=== PATIENT | female | born 1955 | race Caucasian/White ===

== ENCOUNTER 2019-02-27 12:54 | Inpatient (IN) ==
[2019-02-27] MEDS ORDERED: Sennosides/Docusate Sodium TABLET PO PRN (18:45)
[2019-02-27] MEDS ORDERED: Ondansetron 4 MG/2 ML VIAL IVP PRN (18:45)
[2019-02-27] MEDS ORDERED: ALPRAZolam 0.25 MG TABLET GTUBE PRN (18:45)
[2019-02-27] MEDS ORDERED: NON-FORMULARY MEDICATION 1 EACH EACH (Piperacillin-Tazo-Dextrose,Iso [Zosyn 3.375 Gm/50 Ml IV SCH (18:45)
[2019-02-27] MEDS: Docusate Oral Soln 100 MG/10 ML UDC GTUBE SCH (20:38)
[2019-02-27] MEDS: *HR* OxyCODONE Oral Soln 5 MG/5 ML UD.LIQ GTUBE PRN (20:38)
[2019-02-28] MEDS: Piperacillin/Tazobactam 3.375 GM in 0.9 % Sodium Chloride Mini Bag 100 ML IVPB SCH ×3 (00:46→20:38)
[2019-02-28] MEDS: Melatonin 3 MG TABLET PO PRN (01:39)
[2019-02-28] MEDS: Ondansetron 4 MG/2 ML VIAL IVP PRN ×4 (01:39→23:45)
[2019-02-28] MEDS: *HR* Promethazine 25 MG/ML VIAL IVP PRN ×2 (03:45→07:59)
[2019-02-28] MEDS: *HR* OxyCODONE Oral Soln 5 MG/5 ML UD.LIQ GTUBE PRN ×3 (05:38→18:55)
[2019-02-28 07:11] LABS: Basophils % 0.5 %; Eosinophils # 0.1 K/mcL (0.0-0.6); Eosinophils % 1.4 %; Hematocrit 27.8 % (35.3-44.9); Immature Granulocytes % 1.4 % (0-4); Lymphocytes # 0.8 K/mcL (0.6-4.6); Lymphocytes % 11.5 %; Mean Corpuscular HGB Conc 32.4 g/dL (31.6-35.5); Mean Corpuscular Hemoglobin 29.2 pg (28.0-33.3); Mean Corpuscular Volume 90.3 fL (83.0-100.0); Mean Platelet Volume 10.7 fL (9.4-12.4); Monocytes # 0.8 K/mcL (0.0-1.3); Monocytes % 10.4 %; Neutrophils # 5.5 K/mcL (1.6-8.9); Platelet Count 248 K/mcL (140-400); Red Blood Count 3.08 M/mcL (3.82-4.97); Red Cell Distribution Width 20.5 % (11.5-14.5); Segmented Neutrophils % 74.8 %; White Blood Count 7.3 K/mcL (4.3-11.1)
[2019-02-28 07:43] LABS: BUN/Creatinine Ratio 27 (6-26); Blood Urea Nitrogen 25 mg/dL (8-23); Calcium 8.6 mg/dL (8.6-10.3); Carbon Dioxide 23 mEq/L (23-29); Chloride 104 mEq/L (98-107); Glucose 86 mg/dL (70-105); Osmolality,Calculated 290 (280-300); Potassium 3.9 mEq/L (3.5-5.1); Sodium 138 mEq/L (136-145); eGFR For African Americans > 60 (> 60); eGFR For Non-African Americans 60 (> 60)
[2019-02-28] MEDS ORDERED: NON-FORMULARY MEDICATION 1 EACH EACH (Levofloxacin 750 Mg/150 Ml 750 MG) IVPB SCH (09:00)
[2019-02-28] MEDS ORDERED: FLUCONAZOLE IVPB SCH (09:00)
[2019-02-28] MEDS: Docusate Oral Soln 100 MG/10 ML UDC GTUBE SCH ×2 (10:18→20:37)
[2019-02-28] MEDS: levoFLOXacin 750 MG/150 ML 750 MG/150 ML BAG IVPB SCH (10:19)
[2019-02-28] MEDS ORDERED: Fluconazole 400 MG/200 ML 400 MG/200 ML BAG IVPB SCH (15:00)
[2019-02-28] MEDS ORDERED: Fluconazole 200 MG/100 ML 200 MG/100 ML BAG IVPB SCH (15:30)
[2019-02-28] MEDS: Fluconazole 200 MG/100 ML 200 MG/100 ML BAG IVPB SCH (15:35)
[2019-03-01] MEDS: *HR* LORazepam Oral Conc 2 MG/ML SL PRN (01:03)
[2019-03-01] MEDS: Melatonin 3 MG TABLET PO PRN (02:10)
[2019-03-01] MEDS: Ondansetron 4 MG/2 ML VIAL IVP PRN ×2 (04:22→11:55)
[2019-03-01] MEDS: Piperacillin/Tazobactam 3.375 GM in 0.9 % Sodium Chloride Mini Bag 100 ML IVPB SCH ×3 (04:23→21:01)
[2019-03-01] MEDS: levoFLOXacin 750 MG/150 ML 750 MG/150 ML BAG IVPB SCH (08:54)
[2019-03-01] MEDS: Docusate Oral Soln 100 MG/10 ML UDC GTUBE SCH ×2 (08:54→21:05)
[2019-03-01] MEDS ORDERED: 0.9 % Sodium Chloride 250 ML IVC ONE (11:41)
[2019-03-01] MEDS: OLANZapine 5 MG TAB.RAPDIS PO SCH ×2 (11:55→21:05)
[2019-03-01] MEDS: 0.9 % Sodium Chloride 250 ML IVC PRN (16:24)
[2019-03-01] MEDS: Fluconazole 200 MG/100 ML 200 MG/100 ML BAG IVPB SCH (16:49)
[2019-03-01 18:36] LABS: Bilirubin,Urine Negative (Negative); Blood,Urine Small (Negative); Clarity,Urine Clear (Clear); Glucose,Urine (UA) Normal (Normal); Ketones,Urine Negative (Negative); Leukocyte Esterase,Urine Negative (Negative); Nitrite,Urine Negative (Negative); PH,Urine 6.5 pH Units (5.0-8.0); Protein,Urine Negative (Neg-Trace); Urobilinogen,Urine Normal (Normal)
[2019-03-01 18:39] LABS: Color,Urine Light Yellow (Yellow)
[2019-03-01 18:44] LABS: Squamous Epithelial Cell,Urine Few per lpf (None-Few); WBC,Urine 0-3 per hpf (0-3)
[2019-03-01] MEDS: Saline Nasal Spray 44 ML BOTTLE NS SCH (21:11)
[2019-03-02] MEDS: *HR* LORazepam Oral Conc 2 MG/ML SL PRN (01:18)
[2019-03-02] MEDS: *HR* OxyCODONE Oral Soln 5 MG/5 ML UD.LIQ GTUBE PRN (02:39)
[2019-03-02] MEDS: Piperacillin/Tazobactam 3.375 GM in 0.9 % Sodium Chloride Mini Bag 100 ML IVPB SCH ×3 (04:09→21:09)
[2019-03-02] MEDS: Saline Nasal Spray 44 ML BOTTLE NS SCH ×2 (10:50→21:16)
[2019-03-02] MEDS: Docusate Oral Soln 100 MG/10 ML UDC GTUBE SCH ×2 (10:50→21:16)
[2019-03-02] MEDS: diazePAM 5 MG TABLET PO PRN ×2 (10:51→22:15)
[2019-03-02] MEDS: OLANZapine 5 MG TAB.RAPDIS PO SCH ×2 (10:51→21:16)
[2019-03-02] MEDS: levoFLOXacin 750 MG/150 ML 750 MG/150 ML BAG IVPB SCH (10:51)
[2019-03-02] MEDS: Fluconazole 200 MG/100 ML 200 MG/100 ML BAG IVPB SCH (16:59)
[2019-03-02] MEDS: 0.9 % Sodium Chloride 250 ML IVC PRN (21:21)
[2019-03-03] MEDS: diazePAM 5 MG TABLET PO PRN ×2 (04:17→09:39)
[2019-03-03] MEDS: Piperacillin/Tazobactam 3.375 GM in 0.9 % Sodium Chloride Mini Bag 100 ML IVPB SCH ×3 (04:18→20:18)
[2019-03-03 05:31] LABS: Basophils % 0.5 %; Eosinophils # 0.1 K/mcL (0.0-0.6); Eosinophils % 1.8 %; Hematocrit 29.6 % (35.3-44.9); Hemoglobin 9.2 g/dL (11.5-15.4); Immature Granulocytes % 0.6 % (0-4); Lymphocytes # 0.9 K/mcL (0.6-4.6); Lymphocytes % 13.8 %; Mean Corpuscular HGB Conc 31.1 g/dL (31.6-35.5); Mean Corpuscular Hemoglobin 28.9 pg (28.0-33.3); Mean Corpuscular Volume 93.1 fL (83.0-100.0); Mean Platelet Volume 10.5 fL (9.4-12.4); Monocytes # 0.6 K/mcL (0.0-1.3); Monocytes % 9.4 %; Neutrophils # 4.8 K/mcL (1.6-8.9); Platelet Count 230 K/mcL (140-400); Red Blood Count 3.18 M/mcL (3.82-4.97); Red Cell Distribution Width 20.8 % (11.5-14.5); Segmented Neutrophils % 73.9 %; White Blood Count 6.5 K/mcL (4.3-11.1)
[2019-03-03 05:54] LABS: Alanine Aminotransferase 35 Units/L (7-52); Albumin 2.9 g/dL (3.5-5.7); Alkaline Phosphatase 163 Units/L (34-104); Aspartate Amino Transferase 26 Units/L (13-39); BUN/Creatinine Ratio 24 (6-26); Bilirubin,Total 0.4 mg/dL (0.3-1.0); Blood Urea Nitrogen 22 mg/dL (8-23); Calcium 8.4 mg/dL (8.6-10.3); Carbon Dioxide 23 mEq/L (23-29); Chloride 108 mEq/L (98-107); Globulin 2.9 g/dL (2.4-3.5); Glucose 148 mg/dL (70-105); Osmolality,Calculated 296 (280-300); Potassium 3.7 mEq/L (3.5-5.1); Sodium 140 mEq/L (136-145); Total Protein 5.8 g/dL (6.4-8.9); eGFR For African Americans > 60 (> 60); eGFR For Non-African Americans > 60 (> 60)
[2019-03-03] MEDS: *HR* OxyCODONE Oral Soln 5 MG/5 ML UD.LIQ GTUBE PRN (09:39)
[2019-03-03] MEDS: OLANZapine 5 MG TAB.RAPDIS PO SCH ×2 (09:39→20:21)
[2019-03-03] MEDS: Docusate Oral Soln 100 MG/10 ML UDC GTUBE SCH ×2 (09:42→19:42)
[2019-03-03] MEDS: Saline Nasal Spray 44 ML BOTTLE NS SCH ×2 (09:43→20:21)
[2019-03-03 10:50] LABS: Vitamin B12 306 pg/mL (250-1100)
[2019-03-03 10:58] LABS: Folate > 22.3 ng/mL (3.0-16.0)
[2019-03-03] MEDS: Cholecalciferol (D-3) 1,000 UNIT (25MCG) TABLET PO SCH (12:41)
[2019-03-03] MEDS: Fluconazole 200 MG/100 ML 200 MG/100 ML BAG IVPB SCH (17:42)
[2019-03-03] MEDS ORDERED: Lidocaine 4% CREAM (LMX) 5 GM TP PRN (19:37)
[2019-03-04] MEDS: Ondansetron 4 MG/2 ML VIAL IVP PRN (01:00)
[2019-03-04] MEDS: Piperacillin/Tazobactam 3.375 GM in 0.9 % Sodium Chloride Mini Bag 100 ML IVPB SCH ×3 (04:25→21:56)
[2019-03-04] MEDS: Cholecalciferol (D-3) 1,000 UNIT (25MCG) TABLET PO SCH (08:19)
[2019-03-04] MEDS: OLANZapine 5 MG TAB.RAPDIS PO SCH ×2 (08:19→21:57)
[2019-03-04] MEDS: Docusate Oral Soln 100 MG/10 ML UDC GTUBE SCH ×2 (08:20→21:55)
[2019-03-04] MEDS: levoFLOXacin 750 MG/150 ML 750 MG/150 ML BAG IVPB SCH (08:20)
[2019-03-04 09:13] LABS: Basophils % 0.3 %; Eosinophils # 0.1 K/mcL (0.0-0.6); Eosinophils % 1.5 %; Hemoglobin 9.2 g/dL (11.5-15.4); Immature Granulocytes % 0.6 % (0-4); Lymphocytes # 0.9 K/mcL (0.6-4.6); Lymphocytes % 13.7 %; Mean Corpuscular HGB Conc 31.7 g/dL (31.6-35.5); Mean Corpuscular Hemoglobin 29.4 pg (28.0-33.3); Mean Corpuscular Volume 92.7 fL (83.0-100.0); Mean Platelet Volume 10.7 fL (9.4-12.4); Monocytes # 0.7 K/mcL (0.0-1.3); Monocytes % 10.1 %; Neutrophils # 4.9 K/mcL (1.6-8.9); Platelet Count 207 K/mcL (140-400); Red Blood Count 3.13 M/mcL (3.82-4.97); Red Cell Distribution Width 20.7 % (11.5-14.5); Segmented Neutrophils % 73.8 %; White Blood Count 6.6 K/mcL (4.3-11.1)
[2019-03-04 09:33] LABS: BUN/Creatinine Ratio 27 (6-26); Blood Urea Nitrogen 22 mg/dL (8-23); Calcium 8.3 mg/dL (8.6-10.3); Carbon Dioxide 22 mEq/L (23-29); Chloride 109 mEq/L (98-107); Glucose 128 mg/dL (70-105); Magnesium 1.9 mg/dL (1.6-2.6); Osmolality,Calculated 295 (280-300); Potassium 3.8 mEq/L (3.5-5.1); Sodium 140 mEq/L (136-145); eGFR For African Americans > 60 (> 60); eGFR For Non-African Americans > 60 (> 60)
[2019-03-04] MEDS ORDERED: Saline Nasal Spray 44 ML BOTTLE NS PRN (11:21)
[2019-03-04] MEDS: Fluconazole 200 MG/100 ML 200 MG/100 ML BAG IVPB SCH (16:24)
[2019-03-04] MEDS: Melatonin 3 MG TABLET PO PRN (21:56)
[2019-03-05] MEDS: diazePAM 5 MG TABLET PO PRN (03:07)
[2019-03-05] MEDS: Piperacillin/Tazobactam 3.375 GM in 0.9 % Sodium Chloride Mini Bag 100 ML IVPB SCH ×3 (05:10→21:10)
[2019-03-05] MEDS: Ondansetron 4 MG/2 ML VIAL IVP PRN (07:42)
[2019-03-05] MEDS: Docusate Oral Soln 100 MG/10 ML UDC GTUBE SCH ×2 (09:05→21:28)
[2019-03-05] MEDS: OLANZapine 5 MG TAB.RAPDIS PO SCH ×2 (09:21→21:13)
[2019-03-05] MEDS: Cholecalciferol (D-3) 1,000 UNIT (25MCG) TABLET PO SCH (09:21)
[2019-03-05] MEDS: Scopolamine Patch 1.5 MG PATCH.TD72 TD PRN (11:54)
[2019-03-05] MEDS: Fluconazole 200 MG/100 ML 200 MG/100 ML BAG IVPB SCH (16:34)
[2019-03-05] MEDS ORDERED: Isovue-370 500 ML BOTTLE IVP ONE (19:04)
[2019-03-06] MEDS: Piperacillin/Tazobactam 3.375 GM in 0.9 % Sodium Chloride Mini Bag 100 ML IVPB SCH ×3 (04:35→21:25)
[2019-03-06] MEDS: Docusate Oral Soln 100 MG/10 ML UDC GTUBE SCH ×2 (09:16→20:40)
[2019-03-06] MEDS: Cholecalciferol (D-3) 1,000 UNIT (25MCG) TABLET PO SCH (09:19)
[2019-03-06] MEDS: OLANZapine 5 MG TAB.RAPDIS PO SCH ×2 (09:19→21:26)
[2019-03-06] MEDS: levoFLOXacin 750 MG/150 ML 750 MG/150 ML BAG IVPB SCH (09:19)
[2019-03-06] MEDS ORDERED: Metoclopramide 10 MG/2 ML VIAL IVP PRN (12:09)
[2019-03-06] MEDS: Fluconazole 200 MG/100 ML 200 MG/100 ML BAG IVPB SCH (16:19)
[2019-03-06] MEDS ORDERED: Metoclopramide 10 MG/2 ML VIAL IVP SCH (18:00)
[2019-03-06] MEDS ORDERED: SODIUM CHLORIDE IV ONE (19:36)
[2019-03-06] MEDS ORDERED: 0.9 % Sodium Chloride 500 ML IV ONE (19:41)
[2019-03-06] MEDS ORDERED: 0.9 % Sodium Chloride 500 ML IVC SCH (19:45)
[2019-03-06] MEDS ORDERED: 0.9 % Sodium Chloride 1,000 ML ONE (19:48)
[2019-03-07] MEDS: Piperacillin/Tazobactam 3.375 GM in 0.9 % Sodium Chloride Mini Bag 100 ML IVPB SCH ×3 (03:40→20:24)
[2019-03-07] MEDS: Ondansetron 4 MG/2 ML VIAL IVP PRN ×4 (03:42→17:05)
[2019-03-07 07:04] LABS: Alanine Aminotransferase 26 Units/L (7-52); Albumin 2.8 g/dL (3.5-5.7); Albumin/Globulin Ratio 0.9 (1.1-2.2); Alkaline Phosphatase 184 Units/L (34-104); Aspartate Amino Transferase 22 Units/L (13-39); BUN/Creatinine Ratio 25 (6-26); Bilirubin,Total 0.4 mg/dL (0.3-1.0); Blood Urea Nitrogen 22 mg/dL (8-23); Calcium 8.7 mg/dL (8.6-10.3); Carbon Dioxide 20 mEq/L (23-29); Chloride 107 mEq/L (98-107); Globulin 3.1 g/dL (2.4-3.5); Glucose 81 mg/dL (70-105); Osmolality,Calculated 288 (280-300); Potassium 3.8 mEq/L (3.5-5.1); Sodium 138 mEq/L (136-145); Total Protein 5.9 g/dL (6.4-8.9); eGFR For African Americans > 60 (> 60); eGFR For Non-African Americans > 60 (> 60)
[2019-03-07 07:44] LABS: Basophils % 0.8 %; Eosinophils # 0.2 K/mcL (0.0-0.6); Eosinophils % 4.1 %; Hematocrit 30.4 % (35.3-44.9); Hemoglobin 9.5 g/dL (11.5-15.4); Immature Granulocytes % 0.6 % (0-4); Lymphocytes # 0.9 K/mcL (0.6-4.6); Lymphocytes % 17.6 %; Mean Corpuscular HGB Conc 31.3 g/dL (31.6-35.5); Mean Corpuscular Hemoglobin 28.8 pg (28.0-33.3); Mean Corpuscular Volume 92.1 fL (83.0-100.0); Mean Platelet Volume 10.3 fL (9.4-12.4); Monocytes # 0.5 K/mcL (0.0-1.3); Monocytes % 9.7 %; Neutrophils # 3.5 K/mcL (1.6-8.9); Platelet Count 201 K/mcL (140-400); Segmented Neutrophils % 67.2 %; White Blood Count 5.2 K/mcL (4.3-11.1)
[2019-03-07] MEDS: Cholecalciferol (D-3) 1,000 UNIT (25MCG) TABLET PO SCH (08:48)
[2019-03-07] MEDS: Docusate Oral Soln 100 MG/10 ML UDC GTUBE SCH ×2 (08:49→20:22)
[2019-03-07] MEDS: Fluconazole 200 MG/100 ML 200 MG/100 ML BAG IVPB SCH (16:54)
[2019-03-07] MEDS: Famotidine 20 MG/2 ML VIAL IVP SCH (18:18)
[2019-03-07] MEDS: OLANZapine 5 MG TAB.RAPDIS PO SCH (20:26)
[2019-03-07] MEDS: Melatonin 3 MG TABLET PO PRN (20:27)
[2019-03-08] MEDS: Ondansetron 4 MG/2 ML VIAL IVP PRN ×2 (00:45→11:45)
[2019-03-08] MEDS: Famotidine 20 MG/2 ML VIAL IVP SCH ×2 (04:29→17:27)
[2019-03-08] MEDS: Piperacillin/Tazobactam 3.375 GM in 0.9 % Sodium Chloride Mini Bag 100 ML IVPB SCH ×3 (04:39→21:03)
[2019-03-08] MEDS: Docusate Oral Soln 100 MG/10 ML UDC GTUBE SCH ×2 (07:57→21:02)
[2019-03-08] MEDS: levoFLOXacin 750 MG/150 ML 750 MG/150 ML BAG IVPB SCH (09:11)
[2019-03-08] MEDS: Cholecalciferol (D-3) 1,000 UNIT (25MCG) TABLET PO SCH (09:12)
[2019-03-08] MEDS: Metoclopramide 10 MG/2 ML VIAL IVP SCH ×3 (11:49→23:08)
[2019-03-08] MEDS: Fluconazole 200 MG/100 ML 200 MG/100 ML BAG IVPB SCH (16:14)
[2019-03-09] MEDS: Ondansetron 4 MG/2 ML VIAL IVP PRN ×3 (03:49→16:05)
[2019-03-09] MEDS: Piperacillin/Tazobactam 3.375 GM in 0.9 % Sodium Chloride Mini Bag 100 ML IVPB SCH (03:49)
[2019-03-09] MEDS: Metoclopramide 10 MG/2 ML VIAL IVP SCH ×4 (06:58→23:18)
[2019-03-09] MEDS: Famotidine 20 MG/2 ML VIAL IVP SCH ×2 (06:58→18:18)
[2019-03-09] MEDS: Docusate Oral Soln 100 MG/10 ML UDC GTUBE SCH ×2 (10:32→19:41)
[2019-03-09] MEDS: Cholecalciferol (D-3) 1,000 UNIT (25MCG) TABLET PO SCH (10:37)
[2019-03-09] MEDS: *HR* Heparin 5,000 UNIT/ML VIAL SQ SCH ×2 (10:37→18:18)
[2019-03-09] MEDS: Fluconazole 200 MG/100 ML 200 MG/100 ML BAG IVPB SCH (16:04)
[2019-03-09] MEDS: Scopolamine Patch 1.5 MG PATCH.TD72 TD PRN (19:59)
[2019-03-10] MEDS: diazePAM 2 MG TABLET PO PRN (01:49)
[2019-03-10] MEDS: Ondansetron 4 MG/2 ML VIAL IVP PRN ×2 (01:49→07:09)
[2019-03-10] MEDS: Metoclopramide 10 MG/2 ML VIAL IVP SCH ×4 (04:22→23:44)
[2019-03-10] MEDS: Famotidine 20 MG/2 ML VIAL IVP SCH (04:23)
[2019-03-10] MEDS: *HR* Heparin 5,000 UNIT/ML VIAL SQ SCH ×2 (04:24→18:29)
[2019-03-10 06:30] LABS: Basophils % 0.3 %; Eosinophils # 0.1 K/mcL (0.0-0.6); Hematocrit 33.1 % (35.3-44.9); Hemoglobin 10.6 g/dL (11.5-15.4); Immature Granulocytes % 0.4 % (0-4); Lymphocytes # 0.7 K/mcL (0.6-4.6); Lymphocytes % 10.2 %; Mean Corpuscular Hemoglobin 28.8 pg (28.0-33.3); Mean Corpuscular Volume 89.9 fL (83.0-100.0); Mean Platelet Volume 10.8 fL (9.4-12.4); Monocytes # 0.7 K/mcL (0.0-1.3); Monocytes % 9.4 %; Neutrophils # 5.4 K/mcL (1.6-8.9); Platelet Count 248 K/mcL (140-400); Red Blood Count 3.68 M/mcL (3.82-4.97); Red Cell Distribution Width 17.7 % (11.5-14.5); Segmented Neutrophils % 77.7 %; White Blood Count 6.9 K/mcL (4.3-11.1)
[2019-03-10 08:23] LABS: BUN/Creatinine Ratio 22 (6-26); Blood Urea Nitrogen 17 mg/dL (8-23); Calcium 8.9 mg/dL (8.6-10.3); Carbon Dioxide 21 mEq/L (23-29); Chloride 106 mEq/L (98-107); Glucose 150 mg/dL (70-105); Osmolality,Calculated 288 (280-300); Potassium 3.4 mEq/L (3.5-5.1); Sodium 137 mEq/L (136-145); eGFR For African Americans > 60 (> 60); eGFR For Non-African Americans > 60 (> 60)
[2019-03-10] MEDS: Cholecalciferol (D-3) 1,000 UNIT (25MCG) TABLET PO SCH (08:32)
[2019-03-10] MEDS: Docusate Oral Soln 100 MG/10 ML UDC GTUBE SCH ×2 (08:34→21:16)
[2019-03-10] MEDS: *HR* FentaNYL PATCH 25 MCG PATCH TD SCH (10:17)
[2019-03-10] MEDS: Potassium Chloride Elixir 20 MEQ/15 ML UDC GTUBE SCH (10:19)
[2019-03-10] MEDS: Fluconazole 200 MG/100 ML 200 MG/100 ML BAG IVPB SCH (16:58)
[2019-03-11] MEDS: Ondansetron 4 MG/2 ML VIAL IVP PRN ×3 (01:51→19:42)
[2019-03-11] MEDS: diazePAM 2 MG TABLET PO PRN (02:00)
[2019-03-11] MEDS: Metoclopramide 10 MG/2 ML VIAL IVP SCH ×4 (06:16→23:55)
[2019-03-11] MEDS: *HR* Heparin 5,000 UNIT/ML VIAL SQ SCH ×2 (06:16→18:10)
[2019-03-11] MEDS: Cholecalciferol (D-3) 1,000 UNIT (25MCG) TABLET PO SCH (09:22)
[2019-03-11] MEDS: Potassium Chloride Elixir 20 MEQ/15 ML UDC GTUBE SCH (09:22)
[2019-03-11] MEDS: Docusate Oral Soln 100 MG/10 ML UDC GTUBE SCH ×2 (09:23→21:29)
[2019-03-11] MEDS: Fluconazole 200 MG/100 ML 200 MG/100 ML BAG IVPB SCH (18:10)
[2019-03-12] MEDS: Ondansetron 4 MG/2 ML VIAL IVP PRN ×4 (03:31→23:55)
[2019-03-12] MEDS: Metoclopramide 10 MG/2 ML VIAL IVP SCH ×2 (05:45→12:00)
[2019-03-12] MEDS: *HR* Heparin 5,000 UNIT/ML VIAL SQ SCH ×2 (05:45→17:35)
[2019-03-12] MEDS: Cholecalciferol (D-3) 1,000 UNIT (25MCG) TABLET PO SCH (08:48)
[2019-03-12] MEDS: Potassium Chloride Elixir 20 MEQ/15 ML UDC GTUBE SCH (08:49)
[2019-03-12] MEDS: Docusate Oral Soln 100 MG/10 ML UDC GTUBE SCH ×2 (08:49→21:16)
[2019-03-12] MEDS: Fluconazole 200 MG/100 ML 200 MG/100 ML BAG IVPB SCH (17:35)
[2019-03-13] MEDS: Ondansetron 4 MG/2 ML VIAL IVP PRN ×3 (05:21→21:50)
[2019-03-13] MEDS: *HR* Heparin 5,000 UNIT/ML VIAL SQ SCH ×2 (05:22→17:04)
[2019-03-13 06:24] LABS: Hematocrit 32.8 % (35.3-44.9); Hemoglobin 10.6 g/dL (11.5-15.4); Mean Corpuscular HGB Conc 32.3 g/dL (31.6-35.5); Mean Corpuscular Hemoglobin 28.9 pg (28.0-33.3); Mean Corpuscular Volume 89.4 fL (83.0-100.0); Mean Platelet Volume 10.8 fL (9.4-12.4); Platelet Count 250 K/mcL (140-400); Red Blood Count 3.67 M/mcL (3.82-4.97); Red Cell Distribution Width 17.2 % (11.5-14.5); White Blood Count 4.8 K/mcL (4.3-11.1)
[2019-03-13 06:39] LABS: Alanine Aminotransferase 32 Units/L (7-52); Albumin/Globulin Ratio 0.9 (1.1-2.2); Alkaline Phosphatase 291 Units/L (34-104); Aspartate Amino Transferase 23 Units/L (13-39); BUN/Creatinine Ratio 25 (6-26); Bilirubin,Total 0.3 mg/dL (0.3-1.0); Blood Urea Nitrogen 16 mg/dL (8-23); Calcium 9.2 mg/dL (8.6-10.3); Carbon Dioxide 22 mEq/L (23-29); Chloride 102 mEq/L (98-107); Globulin 3.3 g/dL (2.4-3.5); Glucose 120 mg/dL (70-105); Magnesium 1.8 mg/dL (1.6-2.6); Osmolality,Calculated 280 (280-300); Potassium 4.2 mEq/L (3.5-5.1); Sodium 134 mEq/L (136-145); Total Protein 6.3 g/dL (6.4-8.9); eGFR For African Americans > 60 (> 60); eGFR For Non-African Americans > 60 (> 60)
[2019-03-13] MEDS: Potassium Chloride Elixir 20 MEQ/15 ML UDC GTUBE SCH (08:47)
[2019-03-13] MEDS: Cholecalciferol (D-3) 1,000 UNIT (25MCG) TABLET PO SCH (08:48)
[2019-03-13] MEDS: Docusate Oral Soln 100 MG/10 ML UDC GTUBE SCH ×2 (08:48→21:50)
[2019-03-13] MEDS: Scopolamine Patch 1.5 MG PATCH.TD72 TD PRN (10:17)
[2019-03-13] MEDS: *HR* FentaNYL PATCH 25 MCG PATCH TD SCH (10:18)
[2019-03-13] MEDS: Fluconazole 200 MG/100 ML 200 MG/100 ML BAG IVPB SCH (17:04)
[2019-03-14] MEDS: *HR* Heparin 5,000 UNIT/ML VIAL SQ SCH ×2 (05:36→18:47)
[2019-03-14] MEDS: Ondansetron 4 MG/2 ML VIAL IVP PRN ×2 (09:56→16:23)
[2019-03-14] MEDS: Docusate Oral Soln 100 MG/10 ML UDC GTUBE SCH ×2 (09:56→20:55)
[2019-03-14] MEDS: Potassium Chloride Elixir 20 MEQ/15 ML UDC GTUBE SCH (09:56)
[2019-03-14] MEDS: Cholecalciferol (D-3) 1,000 UNIT (25MCG) TABLET PO SCH (09:57)
[2019-03-14] MEDS: Fluconazole 200 MG/100 ML 200 MG/100 ML BAG IVPB SCH ×2 (18:48→19:27)
[2019-03-15] MEDS: *HR* Heparin 5,000 UNIT/ML VIAL SQ SCH ×2 (06:17→17:51)
[2019-03-15] MEDS: Potassium Chloride Elixir 20 MEQ/15 ML UDC GTUBE SCH (09:26)
[2019-03-15] MEDS: Cholecalciferol (D-3) 1,000 UNIT (25MCG) TABLET PO SCH (09:27)
[2019-03-15] MEDS: Docusate Oral Soln 100 MG/10 ML UDC GTUBE SCH ×2 (09:27→21:56)
[2019-03-15] MEDS: Ondansetron 4 MG/2 ML VIAL IVP PRN ×2 (10:38→21:46)
[2019-03-15] MEDS ORDERED: *HR* Metoprolol 5 MG/5 ML VIAL IVP PRN (13:52)
[2019-03-15] MEDS: Prochlorperazine 10 MG/2 ML VIAL IVP PRN (14:45)
[2019-03-15] MEDS: D5% in 0.45% NACL w KCl 20 MEQ/1,000 ML MLS IVC SCH (14:46)
[2019-03-15] MEDS: Fluconazole 200 MG/100 ML 200 MG/100 ML BAG IVPB SCH (17:51)
[2019-03-15] MEDS ORDERED: Morphine Sulfate Oral CONC 10 MG/0.5 ML ORAL.SYG SL PRN (21:52)
[2019-03-16] MEDS: Ondansetron 4 MG/2 ML VIAL IVP PRN ×2 (02:00→09:47)
[2019-03-16] MEDS: Prochlorperazine 10 MG/2 ML VIAL IVP PRN ×2 (04:47→21:48)
[2019-03-16] MEDS: *HR* Heparin 5,000 UNIT/ML VIAL SQ SCH ×2 (04:57→18:01)
[2019-03-16] MEDS: D5% in 0.45% NACL w KCl 20 MEQ/1,000 ML MLS IVC SCH ×2 (04:59→19:36)
[2019-03-16 07:26] LABS: Basophils % 0.6 %; Eosinophils # 0.1 K/mcL (0.0-0.6); Hematocrit 33.6 % (35.3-44.9); Immature Granulocytes % 1.4 % (0-4); Lymphocytes # 1.1 K/mcL (0.6-4.6); Lymphocytes % 16.8 %; Mean Corpuscular HGB Conc 32.7 g/dL (31.6-35.5); Mean Corpuscular Hemoglobin 28.9 pg (28.0-33.3); Mean Corpuscular Volume 88.2 fL (83.0-100.0); Mean Platelet Volume 10.2 fL (9.4-12.4); Monocytes # 0.7 K/mcL (0.0-1.3); Monocytes % 10.6 %; Neutrophils # 4.4 K/mcL (1.6-8.9); Platelet Count 280 K/mcL (140-400); Red Blood Count 3.81 M/mcL (3.82-4.97); Red Cell Distribution Width 16.2 % (11.5-14.5); Segmented Neutrophils % 69.6 %; White Blood Count 6.3 K/mcL (4.3-11.1)
[2019-03-16 07:30] LABS: VBG Ionized Calcium 1.26 mmol/L (1.15-1.35)
[2019-03-16 07:46] LABS: Alanine Aminotransferase 31 Units/L (7-52); Albumin 3.1 g/dL (3.5-5.7); Alkaline Phosphatase 289 Units/L (34-104); Aspartate Amino Transferase 21 Units/L (13-39); BUN/Creatinine Ratio 26 (6-26); Bilirubin,Total 0.3 mg/dL (0.3-1.0); Blood Urea Nitrogen 17 mg/dL (8-23); Calcium 9.3 mg/dL (8.6-10.3); Carbon Dioxide 21 mEq/L (23-29); Chloride 101 mEq/L (98-107); Globulin 3.2 g/dL (2.4-3.5); Glucose 117 mg/dL (70-105); Magnesium 1.8 mg/dL (1.6-2.6); Osmolality,Calculated 277 (280-300); Phosphorous 4.4 mg/dL (2.7-4.5); Potassium 4.7 mEq/L (3.5-5.1); Sodium 132 mEq/L (136-145); Total Protein 6.3 g/dL (6.4-8.9); Triglycerides 157 mg/dL (< 150); eGFR For African Americans > 60 (> 60); eGFR For Non-African Americans > 60 (> 60)
[2019-03-16] MEDS: *HR* FentaNYL PATCH 25 MCG PATCH TD SCH (09:46)
[2019-03-16] MEDS: Scopolamine Patch 1.5 MG PATCH.TD72 TD PRN (09:46)
[2019-03-16] MEDS: Docusate Oral Soln 100 MG/10 ML UDC GTUBE SCH ×2 (09:46→21:40)
[2019-03-16] MEDS: Cholecalciferol (D-3) 1,000 UNIT (25MCG) TABLET PO SCH (09:46)
[2019-03-16] MEDS ORDERED: D10% in Water 500 ML IVC PRN (10:02)
[2019-03-16] MEDS ORDERED: Clinimix E 5%-15% SOLUTION 2,000 ML with MVI, adult with vitamin K 10 ML IVC SCH (17:00)
[2019-03-16] MEDS: Fluconazole 200 MG/100 ML 200 MG/100 ML BAG IVPB SCH (18:01)
[2019-03-17] MEDS ORDERED: ALPRAZolam 0.25 MG TABLET GTUBE ONE (01:17)
[2019-03-17] MEDS: diazePAM 2 MG TABLET GTUBE PRN ×2 (01:57→22:25)
[2019-03-17] MEDS: Prochlorperazine 10 MG/2 ML VIAL IVP PRN (03:52)
[2019-03-17 04:52] LABS: VBG Ionized Calcium 1.21 mmol/L (1.15-1.35)
[2019-03-17 05:10] LABS: BUN/Creatinine Ratio 25 (6-26); Blood Urea Nitrogen 14 mg/dL (8-23); Carbon Dioxide 21 mEq/L (23-29); Chloride 102 mEq/L (98-107); Glucose 156 mg/dL (70-105); Magnesium 1.6 mg/dL (1.6-2.6); Osmolality,Calculated 280 (280-300); Potassium 4.3 mEq/L (3.5-5.1); Sodium 133 mEq/L (136-145); eGFR For African Americans > 60 (> 60); eGFR For Non-African Americans > 60 (> 60)
[2019-03-17] MEDS: *HR* Heparin 5,000 UNIT/ML VIAL SQ SCH ×2 (05:59→18:15)
[2019-03-17] MEDS: Docusate Oral Soln 100 MG/10 ML UDC GTUBE SCH ×2 (08:40→22:24)
[2019-03-17] MEDS: Cholecalciferol (D-3) 1,000 UNIT (25MCG) TABLET PO SCH (08:48)
[2019-03-17] MEDS: D5% in 0.45% NACL w KCl 20 MEQ/1,000 ML MLS IVC SCH ×2 (08:53→22:26)
[2019-03-17] MEDS: Ondansetron 4 MG/2 ML VIAL IVP PRN ×2 (14:40→20:35)
[2019-03-17] MEDS ORDERED: Clinimix E 5%-15% SOLUTION 2,000 ML with MVI, adult with vitamin K 10 ML IVC SCH (17:00)
[2019-03-17] MEDS: Fluconazole 200 MG/100 ML 200 MG/100 ML BAG IVPB SCH (17:35)
[2019-03-18] MEDS: Prochlorperazine 10 MG/2 ML VIAL IVP PRN ×2 (01:27→21:40)
[2019-03-18 04:45] LABS: VBG Ionized Calcium 1.18 mmol/L (1.15-1.35)
[2019-03-18 04:59] LABS: BUN/Creatinine Ratio 29 (6-26); Blood Urea Nitrogen 15 mg/dL (8-23); Carbon Dioxide 22 mEq/L (23-29); Chloride 102 mEq/L (98-107); Glucose 146 mg/dL (70-105); Magnesium 1.7 mg/dL (1.6-2.6); Osmolality,Calculated 279 (280-300); Phosphorous 3.8 mg/dL (2.7-4.5); Potassium 4.4 mEq/L (3.5-5.1); Sodium 133 mEq/L (136-145); eGFR For African Americans > 60 (> 60); eGFR For Non-African Americans > 60 (> 60)
[2019-03-18] MEDS: *HR* Heparin 5,000 UNIT/ML VIAL SQ SCH ×2 (06:41→17:20)
[2019-03-18] MEDS: Docusate Oral Soln 100 MG/10 ML UDC GTUBE SCH ×2 (09:53→21:52)
[2019-03-18] MEDS: Cholecalciferol (D-3) 1,000 UNIT (25MCG) TABLET PO SCH (09:54)
[2019-03-18] MEDS: Ondansetron 4 MG/2 ML VIAL IVP PRN (13:31)
[2019-03-18] MEDS: Fluconazole 200 MG/100 ML 200 MG/100 ML BAG IVPB SCH (17:15)
[2019-03-18] MEDS: diazePAM 2 MG TABLET GTUBE PRN (21:40)
[2019-03-19] MEDS: Ondansetron 4 MG/2 ML VIAL IVP PRN (02:31)
[2019-03-19] MEDS: *HR* Heparin 5,000 UNIT/ML VIAL SQ SCH ×2 (05:16→18:19)
[2019-03-19] MEDS: Prochlorperazine 10 MG/2 ML VIAL IVP PRN ×2 (05:16→23:50)
[2019-03-19] MEDS: D5% in 0.45% NACL w KCl 20 MEQ/1,000 ML MLS IVC SCH (09:18)
[2019-03-19] MEDS: Docusate Oral Soln 100 MG/10 ML UDC GTUBE SCH ×2 (10:02→22:07)
[2019-03-19] MEDS: Cholecalciferol (D-3) 1,000 UNIT (25MCG) TABLET PO SCH (10:06)
[2019-03-19] MEDS: diazePAM 2 MG TABLET GTUBE PRN ×3 (10:06→23:49)
[2019-03-19] MEDS: Scopolamine Patch 1.5 MG PATCH.TD72 TD PRN (10:14)
[2019-03-19] MEDS: Fluconazole 200 MG/100 ML 200 MG/100 ML BAG IVPB SCH (18:18)
[2019-03-20] MEDS: *HR* Heparin 5,000 UNIT/ML VIAL SQ SCH ×2 (06:03→16:57)
[2019-03-20] MEDS: Cholecalciferol (D-3) 1,000 UNIT (25MCG) TABLET PO SCH (08:48)
[2019-03-20] MEDS: Docusate Oral Soln 100 MG/10 ML UDC GTUBE SCH ×2 (11:19→21:06)
[2019-03-20] MEDS: Ondansetron 4 MG/2 ML VIAL IVP PRN (16:53)
[2019-03-20] MEDS: Fluconazole 200 MG/100 ML 200 MG/100 ML BAG IVPB SCH (16:56)
[2019-03-20] MEDS: Melatonin 3 MG TABLET GTUBE SCH (21:13)
[2019-03-21] MEDS: Ondansetron 4 MG/2 ML VIAL IVP PRN ×2 (01:49→12:32)
[2019-03-21] MEDS: *HR* Heparin 5,000 UNIT/ML VIAL SQ SCH ×2 (04:35→16:51)
[2019-03-21] MEDS: Docusate Oral Soln 100 MG/10 ML UDC GTUBE SCH ×2 (09:59→21:19)
[2019-03-21] MEDS: Cholecalciferol (D-3) 1,000 UNIT (25MCG) TABLET PO SCH (09:59)
[2019-03-21] MEDS: Fluconazole 200 MG/100 ML 200 MG/100 ML BAG IVPB SCH (17:59)
[2019-03-21] MEDS: Melatonin 3 MG TABLET GTUBE SCH (21:19)
[2019-03-22] MEDS: Prochlorperazine 10 MG/2 ML VIAL IVP PRN ×3 (00:34→20:23)
[2019-03-22] MEDS: Ondansetron 4 MG/2 ML VIAL IVP PRN (04:27)
[2019-03-22] MEDS: *HR* Heparin 5,000 UNIT/ML VIAL SQ SCH ×2 (06:23→17:53)
[2019-03-22] MEDS: Docusate Oral Soln 100 MG/10 ML UDC GTUBE SCH ×2 (09:34→20:24)
[2019-03-22] MEDS: Fluconazole 200 MG/100 ML 200 MG/100 ML BAG IVPB SCH (17:53)
[2019-03-22] MEDS: Melatonin 3 MG TABLET GTUBE SCH (20:23)
[2019-03-23] MEDS: Ondansetron 4 MG/2 ML VIAL IVP PRN (00:48)
[2019-03-23] MEDS: Prochlorperazine 10 MG/2 ML VIAL IVP PRN (05:08)
[2019-03-23] MEDS: *HR* Heparin 5,000 UNIT/ML VIAL SQ SCH ×2 (05:08→18:27)
[2019-03-23] MEDS: Docusate Oral Soln 100 MG/10 ML UDC GTUBE SCH ×2 (09:27→20:35)
[2019-03-23] MEDS: Fluconazole 200 MG/100 ML 200 MG/100 ML BAG IVPB SCH (18:28)
[2019-03-23] MEDS: Melatonin 3 MG TABLET GTUBE SCH (20:34)
[2019-03-24] MEDS: Prochlorperazine 10 MG/2 ML VIAL IVP PRN ×2 (00:04→14:53)
[2019-03-24] MEDS: *HR* Heparin 5,000 UNIT/ML VIAL SQ SCH ×2 (05:54→17:11)
[2019-03-24] MEDS: Docusate Oral Soln 100 MG/10 ML UDC GTUBE SCH ×2 (08:41→22:13)
[2019-03-24] MEDS: Scopolamine Patch 1.5 MG PATCH.TD72 TD PRN (15:25)
[2019-03-24] MEDS ORDERED: 0.9 % Sodium Chloride 500 ML IVC ONE (16:49)
[2019-03-24] MEDS: Fluconazole 200 MG/100 ML 200 MG/100 ML BAG IVPB SCH (18:26)
[2019-03-24] MEDS: Melatonin 3 MG TABLET GTUBE SCH (22:22)
[2019-03-25] MEDS: Ondansetron 4 MG/2 ML VIAL IVP PRN (01:46)
[2019-03-25] MEDS: Prochlorperazine 10 MG/2 ML VIAL IVP PRN (03:18)
[2019-03-25] MEDS: *HR* Heparin 5,000 UNIT/ML VIAL SQ SCH ×2 (05:17→18:51)
[2019-03-25 05:37] LABS: Hematocrit 31.4 % (35.3-44.9); Hemoglobin 10.4 g/dL (11.5-15.4); Mean Corpuscular HGB Conc 33.1 g/dL (31.6-35.5); Mean Corpuscular Hemoglobin 29.6 pg (28.0-33.3); Mean Corpuscular Volume 89.5 fL (83.0-100.0); Mean Platelet Volume 10.3 fL (9.4-12.4); Platelet Count 272 K/mcL (140-400); Red Blood Count 3.51 M/mcL (3.82-4.97); Red Cell Distribution Width 16.4 % (11.5-14.5); White Blood Count 7.5 K/mcL (4.3-11.1)
[2019-03-25 06:53] LABS: Alanine Aminotransferase 31 Units/L (7-52); Albumin/Globulin Ratio 1.1 (1.1-2.2); Alkaline Phosphatase 307 Units/L (34-104); Aspartate Amino Transferase 17 Units/L (13-39); BUN/Creatinine Ratio 38 (6-26); Bilirubin,Total 0.3 mg/dL (0.3-1.0); Blood Urea Nitrogen 19 mg/dL (8-23); Calcium 8.8 mg/dL (8.6-10.3); Carbon Dioxide 23 mEq/L (23-29); Chloride 103 mEq/L (98-107); Globulin 2.8 g/dL (2.4-3.5); Glucose 127 mg/dL (70-105); Osmolality,Calculated 282 (280-300); Sodium 134 mEq/L (136-145); Total Protein 5.8 g/dL (6.4-8.9); eGFR For African Americans > 60 (> 60); eGFR For Non-African Americans > 60 (> 60)
[2019-03-25] MEDS: Docusate Oral Soln 100 MG/10 ML UDC GTUBE SCH ×2 (08:49→21:39)
[2019-03-25] MEDS ORDERED: Morphine Sulfate Oral CONC 10 MG/0.5 ML ORAL.SYG SL PRN (15:42)
[2019-03-25] MEDS: levoFLOXacin 750 MG/150 ML 750 MG/150 ML BAG IVPB SCH (17:02)
[2019-03-25] MEDS ORDERED: Piperacillin/Tazobactam 3.375 GM in 0.9 % Sodium Chloride Mini Bag 100 ML IVPB SCH (18:00)
[2019-03-25] MEDS: Fluconazole 200 MG/100 ML 200 MG/100 ML BAG IVPB SCH (18:41)
[2019-03-25] MEDS: Piperacillin/Tazobactam 3.375 GM in 0.9 % Sodium Chloride Mini Bag 100 ML IVPB SCH (19:52)
[2019-03-25] MEDS: Melatonin 3 MG TABLET GTUBE SCH (22:43)
[2019-03-26] MEDS: Ondansetron 4 MG/2 ML VIAL IVP PRN ×3 (01:36→22:24)
[2019-03-26] MEDS: Piperacillin/Tazobactam 3.375 GM in 0.9 % Sodium Chloride Mini Bag 100 ML IVPB SCH ×3 (03:32→19:38)
[2019-03-26] MEDS: Prochlorperazine 10 MG/2 ML VIAL IVP PRN (03:37)
[2019-03-26] MEDS: *HR* Heparin 5,000 UNIT/ML VIAL SQ SCH ×2 (06:07→18:40)
[2019-03-26] MEDS: Docusate Oral Soln 100 MG/10 ML UDC GTUBE SCH ×2 (09:52→22:14)
[2019-03-26] MEDS: levoFLOXacin 750 MG/150 ML 750 MG/150 ML BAG IVPB SCH (16:14)
[2019-03-26] MEDS: Fluconazole 200 MG/100 ML 200 MG/100 ML BAG IVPB SCH (17:45)
[2019-03-26] MEDS: Melatonin 3 MG TABLET GTUBE SCH (22:14)
[2019-03-26] MEDS: Temazepam 15 MG CAPSULE GTUBE PRN (23:48)
[2019-03-27] MEDS: Piperacillin/Tazobactam 3.375 GM in 0.9 % Sodium Chloride Mini Bag 100 ML IVPB SCH ×3 (04:19→20:09)
[2019-03-27] MEDS: *HR* Heparin 5,000 UNIT/ML VIAL SQ SCH ×2 (06:23→17:56)
[2019-03-27] MEDS: Prochlorperazine 10 MG/2 ML VIAL IVP PRN ×2 (09:49→20:24)
[2019-03-27] MEDS: Docusate Oral Soln 100 MG/10 ML UDC GTUBE SCH ×2 (09:49→20:06)
[2019-03-27] MEDS: Scopolamine Patch 1.5 MG PATCH.TD72 TD PRN (16:11)
[2019-03-27] MEDS: levoFLOXacin 750 MG/150 ML 750 MG/150 ML BAG IVPB SCH ×2 (16:11→17:03)
[2019-03-27] MEDS: Ondansetron 4 MG/2 ML VIAL IVP PRN (16:13)
[2019-03-27] MEDS: Fluconazole 200 MG/100 ML 200 MG/100 ML BAG IVPB SCH (17:57)
[2019-03-27] MEDS: Melatonin 3 MG TABLET GTUBE SCH (20:14)
[2019-03-27] MEDS: Temazepam 15 MG CAPSULE GTUBE PRN (20:15)
[2019-03-28] MEDS: Piperacillin/Tazobactam 3.375 GM in 0.9 % Sodium Chloride Mini Bag 100 ML IVPB SCH ×3 (04:27→22:08)
[2019-03-28] MEDS: *HR* Heparin 5,000 UNIT/ML VIAL SQ SCH ×2 (05:48→16:32)
[2019-03-28] MEDS: Docusate Oral Soln 100 MG/10 ML UDC GTUBE SCH ×2 (08:49→22:07)
[2019-03-28] MEDS: levoFLOXacin 750 MG/150 ML 750 MG/150 ML BAG IVPB SCH (16:25)
[2019-03-28] MEDS: Fluconazole 200 MG/100 ML 200 MG/100 ML BAG IVPB SCH (17:25)
[2019-03-28] MEDS: Temazepam 15 MG CAPSULE GTUBE PRN (22:07)
[2019-03-28] MEDS: Melatonin 3 MG TABLET GTUBE SCH (22:07)
[2019-03-29] MEDS: diazePAM 2 MG TABLET GTUBE PRN (00:47)
[2019-03-29] MEDS: Piperacillin/Tazobactam 3.375 GM in 0.9 % Sodium Chloride Mini Bag 100 ML IVPB SCH ×3 (02:10→19:47)
[2019-03-29] MEDS: Prochlorperazine 10 MG/2 ML VIAL IVP PRN (04:23)
[2019-03-29] MEDS: *HR* Heparin 5,000 UNIT/ML VIAL SQ SCH ×2 (06:15→17:15)
[2019-03-29 07:19] LABS: Hematocrit 32.4 % (35.3-44.9); Hemoglobin 10.7 g/dL (11.5-15.4); Mean Corpuscular Hemoglobin 29.5 pg (28.0-33.3); Mean Corpuscular Volume 89.3 fL (83.0-100.0); Mean Platelet Volume 10.9 fL (9.4-12.4); Platelet Count 281 K/mcL (140-400); Red Blood Count 3.63 M/mcL (3.82-4.97); Red Cell Distribution Width 16.3 % (11.5-14.5); White Blood Count 6.6 K/mcL (4.3-11.1)
[2019-03-29 07:35] LABS: Alanine Aminotransferase 36 Units/L (7-52); Albumin 2.9 g/dL (3.5-5.7); Alkaline Phosphatase 321 Units/L (34-104); Aspartate Amino Transferase 22 Units/L (13-39); BUN/Creatinine Ratio 29 (6-26); Bilirubin,Total 0.2 mg/dL (0.3-1.0); Blood Urea Nitrogen 16 mg/dL (8-23); Calcium 8.8 mg/dL (8.6-10.3); Carbon Dioxide 23 mEq/L (23-29); Chloride 103 mEq/L (98-107); Globulin 2.9 g/dL (2.4-3.5); Glucose 140 mg/dL (70-105); Magnesium 1.7 mg/dL (1.6-2.6); Osmolality,Calculated 281 (280-300); Potassium 3.9 mEq/L (3.5-5.1); Sodium 134 mEq/L (136-145); Total Protein 5.8 g/dL (6.4-8.9); eGFR For African Americans > 60 (> 60); eGFR For Non-African Americans > 60 (> 60)
[2019-03-29] MEDS: Docusate Oral Soln 100 MG/10 ML UDC GTUBE SCH ×2 (08:34→22:07)
[2019-03-29] MEDS: levoFLOXacin 750 MG/150 ML 750 MG/150 ML BAG IVPB SCH (15:38)
[2019-03-29] MEDS: Fluconazole 200 MG/100 ML 200 MG/100 ML BAG IVPB SCH (17:19)
[2019-03-29] MEDS: Temazepam 15 MG CAPSULE GTUBE PRN (22:08)
[2019-03-29] MEDS: Melatonin 3 MG TABLET GTUBE SCH (22:08)
[2019-03-30] MEDS: Prochlorperazine 10 MG/2 ML VIAL IVP PRN (02:37)
[2019-03-30] MEDS: Piperacillin/Tazobactam 3.375 GM in 0.9 % Sodium Chloride Mini Bag 100 ML IVPB SCH ×3 (03:46→18:28)
[2019-03-30] MEDS: *HR* Heparin 5,000 UNIT/ML VIAL SQ SCH ×2 (06:42→17:09)
[2019-03-30] MEDS: Docusate Oral Soln 100 MG/10 ML UDC GTUBE SCH ×2 (09:37→22:36)
[2019-03-30] MEDS: Ondansetron 4 MG/2 ML VIAL IVP PRN (15:08)
[2019-03-30] MEDS: levoFLOXacin 750 MG/150 ML 750 MG/150 ML BAG IVPB SCH (15:08)
[2019-03-30] MEDS: Fluconazole 200 MG/100 ML 200 MG/100 ML BAG IVPB SCH (17:09)
[2019-03-30] MEDS: Scopolamine Patch 1.5 MG PATCH.TD72 TD PRN (18:26)
[2019-03-30] MEDS: Melatonin 3 MG TABLET GTUBE SCH (21:04)
[2019-03-30] MEDS: Temazepam 15 MG CAPSULE GTUBE PRN (21:09)
[2019-03-31] MEDS: diazePAM 2 MG TABLET GTUBE PRN (00:23)
[2019-03-31] MEDS: Prochlorperazine 10 MG/2 ML VIAL IVP PRN ×2 (02:34→18:18)
[2019-03-31] MEDS: Piperacillin/Tazobactam 3.375 GM in 0.9 % Sodium Chloride Mini Bag 100 ML IVPB SCH ×3 (02:37→19:24)
[2019-03-31] MEDS: *HR* Heparin 5,000 UNIT/ML VIAL SQ SCH ×2 (05:04→17:45)
[2019-03-31] MEDS: Ondansetron 4 MG/2 ML VIAL IVP PRN ×2 (05:04→20:25)
[2019-03-31] MEDS: Docusate Oral Soln 100 MG/10 ML UDC GTUBE SCH ×2 (09:38→21:25)
[2019-03-31] MEDS: levoFLOXacin 750 MG/150 ML 750 MG/150 ML BAG IVPB SCH (17:17)
[2019-03-31] MEDS: Fluconazole 200 MG/100 ML 200 MG/100 ML BAG IVPB SCH (17:55)
[2019-03-31] MEDS: Melatonin 3 MG TABLET GTUBE SCH (22:49)
[2019-03-31] MEDS: Temazepam 15 MG CAPSULE GTUBE PRN (22:49)
[2019-04-01] MEDS: diazePAM 2 MG TABLET GTUBE PRN ×2 (00:28→23:19)
[2019-04-01] MEDS: Prochlorperazine 10 MG/2 ML VIAL IVP PRN ×2 (00:28→20:54)
[2019-04-01] MEDS: Piperacillin/Tazobactam 3.375 GM in 0.9 % Sodium Chloride Mini Bag 100 ML IVPB SCH ×3 (03:28→20:55)
[2019-04-01] MEDS: Ondansetron 4 MG/2 ML VIAL IVP PRN ×4 (03:28→23:20)
[2019-04-01] MEDS: *HR* Heparin 5,000 UNIT/ML VIAL SQ SCH ×2 (06:17→18:53)
[2019-04-01] MEDS: Docusate Oral Soln 100 MG/10 ML UDC GTUBE SCH ×2 (07:57→20:54)
[2019-04-01] MEDS: levoFLOXacin 750 MG/150 ML 750 MG/150 ML BAG IVPB SCH (17:03)
[2019-04-01] MEDS: Fluconazole 200 MG/100 ML 200 MG/100 ML BAG IVPB SCH (18:40)
[2019-04-01] MEDS: Melatonin 3 MG TABLET GTUBE SCH (20:53)
[2019-04-01] MEDS: Temazepam 15 MG CAPSULE GTUBE PRN (20:54)
[2019-04-02] MEDS: Piperacillin/Tazobactam 3.375 GM in 0.9 % Sodium Chloride Mini Bag 100 ML IVPB SCH ×3 (04:59→21:58)
[2019-04-02] MEDS: Ondansetron 4 MG/2 ML VIAL IVP PRN ×2 (05:00→18:04)
[2019-04-02] MEDS: *HR* Heparin 5,000 UNIT/ML VIAL SQ SCH ×2 (05:00→16:58)
[2019-04-02] MEDS: Docusate Oral Soln 100 MG/10 ML UDC GTUBE SCH (09:41)
[2019-04-02] MEDS: Scopolamine Patch 1.5 MG PATCH.TD72 TD PRN (17:00)
[2019-04-02] MEDS: levoFLOXacin 750 MG/150 ML 750 MG/150 ML BAG IVPB SCH (17:41)
[2019-04-02] MEDS: Fluconazole 200 MG/100 ML 200 MG/100 ML BAG IVPB SCH (19:05)
[2019-04-02] MEDS: Melatonin 3 MG TABLET GTUBE SCH (21:59)
[2019-04-02] MEDS: Prochlorperazine 10 MG/2 ML VIAL IVP PRN (21:59)
[2019-04-03] MEDS: Docusate Oral Soln 100 MG/10 ML UDC GTUBE SCH ×3 (00:04→19:38)
[2019-04-03] MEDS: Ondansetron 4 MG/2 ML VIAL IVP PRN ×2 (02:44→23:05)
[2019-04-03] MEDS: Piperacillin/Tazobactam 3.375 GM in 0.9 % Sodium Chloride Mini Bag 100 ML IVPB SCH ×3 (04:56→22:09)
[2019-04-03] MEDS: *HR* Heparin 5,000 UNIT/ML VIAL SQ SCH ×2 (04:58→17:19)
[2019-04-03] MEDS: Prochlorperazine 10 MG/2 ML VIAL IVP PRN ×2 (04:59→19:37)
[2019-04-03] MEDS: Fluconazole 200 MG/100 ML 200 MG/100 ML BAG IVPB SCH (18:33)
[2019-04-03] MEDS: levoFLOXacin 750 MG/150 ML 750 MG/150 ML BAG IVPB SCH (18:36)
[2019-04-03] MEDS: Melatonin 3 MG TABLET GTUBE SCH (22:09)
[2019-04-04] MEDS: Prochlorperazine 10 MG/2 ML VIAL IVP PRN ×2 (05:06→15:04)
[2019-04-04] MEDS: Piperacillin/Tazobactam 3.375 GM in 0.9 % Sodium Chloride Mini Bag 100 ML IVPB SCH ×3 (05:06→19:47)
[2019-04-04] MEDS: *HR* Heparin 5,000 UNIT/ML VIAL SQ SCH ×2 (05:34→17:15)
[2019-04-04] MEDS: Ondansetron 4 MG/2 ML VIAL IVP PRN ×2 (10:29→19:48)
[2019-04-04] MEDS: Docusate Oral Soln 100 MG/10 ML UDC GTUBE SCH ×2 (10:29→19:49)
[2019-04-04] MEDS: Fluconazole 200 MG/100 ML 200 MG/100 ML BAG IVPB SCH (17:12)
[2019-04-04] MEDS: levoFLOXacin 750 MG/150 ML 750 MG/150 ML BAG IVPB SCH (17:13)
[2019-04-04] MEDS: Melatonin 3 MG TABLET GTUBE SCH (19:49)
[2019-04-05] MEDS: Prochlorperazine 10 MG/2 ML VIAL IVP PRN ×2 (03:23→21:44)
[2019-04-05] MEDS: Piperacillin/Tazobactam 3.375 GM in 0.9 % Sodium Chloride Mini Bag 100 ML IVPB SCH ×3 (03:24→21:45)
[2019-04-05] MEDS: *HR* Heparin 5,000 UNIT/ML VIAL SQ SCH ×2 (03:24→18:23)
[2019-04-05] MEDS: Docusate Oral Soln 100 MG/10 ML UDC GTUBE SCH ×2 (08:51→21:46)
[2019-04-05 16:12] LABS: Hematocrit 35.8 % (35.3-44.9); Hemoglobin 11.6 g/dL (11.5-15.4); Mean Corpuscular HGB Conc 32.4 g/dL (31.6-35.5); Mean Corpuscular Hemoglobin 29.4 pg (28.0-33.3); Mean Corpuscular Volume 90.9 fL (83.0-100.0); Mean Platelet Volume 9.7 fL (9.4-12.4); Platelet Count 291 K/mcL (140-400); Red Blood Count 3.94 M/mcL (3.82-4.97); Red Cell Distribution Width 17.2 % (11.5-14.5); White Blood Count 7.9 K/mcL (4.3-11.1)
[2019-04-05 16:40] LABS: Alanine Aminotransferase 29 Units/L (7-52); Albumin 3.4 g/dL (3.5-5.7); Albumin/Globulin Ratio 1.1 (1.1-2.2); Alkaline Phosphatase 263 Units/L (34-104); Aspartate Amino Transferase 20 Units/L (13-39); BUN/Creatinine Ratio 26 (6-26); Bilirubin,Indirect 0.3 mg/dL (0.0-1.0); Bilirubin,Total 0.3 mg/dL (0.3-1.0); Blood Urea Nitrogen 15 mg/dL (8-23); Calcium 9.2 mg/dL (8.6-10.3); Carbon Dioxide 25 mEq/L (23-29); Chloride 104 mEq/L (98-107); Glucose 104 mg/dL (70-105); Osmolality,Calculated 287 (280-300); Potassium 3.9 mEq/L (3.5-5.1); Sodium 138 mEq/L (136-145); Total Protein 6.4 g/dL (6.4-8.9); eGFR For African Americans > 60 (> 60); eGFR For Non-African Americans > 60 (> 60)
[2019-04-05] MEDS: levoFLOXacin 750 MG/150 ML 750 MG/150 ML BAG IVPB SCH (17:10)
[2019-04-05] MEDS: Fluconazole 200 MG/100 ML 200 MG/100 ML BAG IVPB SCH (18:33)
[2019-04-05] MEDS: Scopolamine Patch 1.5 MG PATCH.TD72 TD PRN (18:41)
[2019-04-05] MEDS: Melatonin 3 MG TABLET GTUBE SCH (21:46)
[2019-04-06] MEDS: Prochlorperazine 10 MG/2 ML VIAL IVP PRN (04:23)
[2019-04-06 06:33] VITALS: BP 90/62
[2019-04-06] MEDS: *HR* Heparin 5,000 UNIT/ML VIAL SQ SCH (06:50)
[2019-04-06] MEDS: Docusate Oral Soln 100 MG/10 ML UDC GTUBE SCH (09:56)
== END 2019-04-06 11:05 | disposition home or self-care (01) | DRG 949 ==
LOC: INPPIK 19:16 → SUATTDRO 19:16
PROVIDERS: ADMIT Family Medicine; ATTEND Family Medicine